=== PATIENT | female | born 1940 | race Caucasian/White ===

== ENCOUNTER 2016-12-08 12:54 | Day surgery (SDC) | payer MEDICARE ==
[~2016-12-08] VITALS: Ht 162.6 cm; Wt 74.4 kg
[2016-12-08] MEDS ORDERED: ALENDRONATE SOD35 MG PO (13:13)
[2016-12-08] MEDS ORDERED: CELEBREX200 MG PO (13:14)
[2016-12-08] MEDS ORDERED: ESTRACE1 MG PO (13:15)
[2016-12-08] MEDS ORDERED: FLUTICASONE PRO16 GM NAS (13:16)
[2016-12-08] MEDS ORDERED: FLUARIX QU60 MCG/0.3 IM (13:16)
[2016-12-08] MEDS ORDERED: LOVASTATIN40 MG PO (13:17)
[2016-12-08] MEDS ORDERED: LOVASTATIN20 MG PO (13:17)
[2016-12-08] MEDS ORDERED: MEDROXYPROGEST2.5 MG PO (13:17)
[2016-12-08] MEDS ORDERED: LEVOTHYROXINE112 MCG PO (13:17)
[2016-12-08] MEDS ORDERED: VESICARE5 MG PO (13:18)
[2016-12-08] MEDS ORDERED: NITROFURANTOIN100 MG (13:18)
--- NOTE | 2016-12-08 14:19 | NUR ---
12/08/16 1419 Micheal Foote PT SLEEPING AND PASSING LARGE AMOUNTS OF AIR FROM HER COLON.
--- NOTE | 2016-12-17 10:32 | OR ---
[facility] [address], [place] [address] Signed DATE OF SERVICE: 12/08/2016 PREOPERATIVE DIAGNOSIS: Episodic constipation. No prior history of complete colonoscopy. POSTOPERATIVE DIAGNOSES: Extensive diverticulosis. Polyps x3. PROCEDURE: Total colonoscopy to cecum with cold morcellation polypectomy x3. SURGEON: Meme Arellano MD. ANESTHESIA: Intravenous sedation. Fentanyl 150 mcg, Versed 4 mg. INDICATION: This 76-year-old white woman is a patient of Alexey DE LA FUENTE and was referred for colonoscopy. She has had occasional constipation, but no blood per rectum. Her sister was noted to have an arteriovenous malformation of the colon manifesting as GI bleeding. She has no family history of colon cancer. She does not think she has had colonoscopy in the past. She is admitted at this time to undergo colonoscopy understanding the risks of bleeding, infection, and perforation. FINDINGS: The prep was excellent. Complete colonoscopy was undertaken to the cecum. There were numerous diverticula of the sigmoid left and transverse colon as well as few in the right colon as well. There were 3 small polyps, all have been excised with cold morcellation technique. There were no ot her findings of concern. DESCRIPTION OF PROCEDURE: The patient was brought to the endoscopy suite and placed in lateral decubitus position, given intravenous sedation to the point of slurred speech and nystagmus. Digital rectal examination was normal. An O lympus video colonoscope was passed in the rectum and manipulated throughout the colon. Numerous diverticula were seen in the sigmoid and left colon. Scope was ultimately advanced to the splenic flexure area where a small sessile polyp was noted. This was excised with cold morcellation technique further with advancement of the scope allowed for intubation of the cecum. Ileocecal valve and appendiceal orifice were normal. There were fevers and diverticula in the right colon. The scope was withdrawn from that point and examination showed an area that was suggestive though not diagnostic Electronically Signed By: MEME ARELLANO MD 12/17/16 1032 PATIENT NAME: GAYLA JANE OPERATIVE REPORT DATE OF : 44 PHYSICIAN: MEME ARELLANO MD REPORT #: [id number] REPORT IS CONFIDENTIAL AND NOT TO BE RELEASED WITHOUT AUTHORIZATION [facility] [address], [place] [address] Signed of a polyp near the ileocecal valve. Narrow band imaging did not better characterize, it was biopsied. The scope was then withdrawn and examination throughout showed no sign of abnormality until the splenic flexure where the initial polypectomy site was. Further withdrawal of scope confirmed numerous diverticula of the left colon and sigmoid. Within the sigmoid was a small polyp and with narrow band imaging highly likely to be adenomatous polyps. This was excised fully with cold morcellation technique. Further withdrawal of scope showed no other abnormalities. Retroflexed view was normal. The scope was removed and the patient was taken to recovery room in good condition. CONCLUDING DIAGNOSES: Extensive diverticulosis. Polyps x2 or possibly 3. FOLLOW UP PLAN: We will check pathology reports. She should maintain a high-fiber diet and repeat colonoscopy in 5 years if clinically appropriate based on her medical condition at this time. She will return to the ongoing care of Samra Collier. MD LACEY Lee/Reymundol /[id number] cc: Samra Collier Electronically Signed By: MEME ARELLANO MD 12/17/16 1032 PATIENT NAME: GAYLA JANE ANN OPERATIVE REPORT DATE OF : 42 PHYSICIAN: MEME ARELLANO MD REPORT #: [id number] REPORT IS CONFIDENTIAL AND NOT TO BE RELEASED WITHOUT AUTHORIZATION
== END 2016-12-08 15:07 | disposition home or self-care (01) ==
LOC: OPS 12:54 → DS 14:00 → OPS 15:07
PROVIDERS: Surgery
PROC: 0DBN8ZX Excision of Sigmoid Colon, Via Natural or Artificial Opening Endoscopic, Diagnostic (ICD-10-PCS; 2016-12-08)
PROC: 0DBL8ZX Excision of Transverse Colon, Via Natural or Artificial Opening Endoscopic, Diagnostic (ICD-10-PCS; 2016-12-08)
PROC: 0DBH8ZX Excision of Cecum, Via Natural or Artificial Opening Endoscopic, Diagnostic (ICD-10-PCS; principal; 2016-12-08 10:00)
DX: D12.3 Benign neoplasm of transverse colon (principal); K57.30 Diverticulosis of large intestine without perforation or abscess without bleeding; E78.5 Hyperlipidemia, unspecified; I10 Essential (primary) hypertension; E03.9 Hypothyroidism, unspecified; Z87.891 Personal history of nicotine dependence; Z96.651 Presence of right artificial knee joint; Z90.89 Acquired absence of other organs; Z88.0 Allergy status to penicillin; Z88.2 Allergy status to sulfonamides; Z98.890 Other specified postprocedural states
CPT/HCPCS: 88305; 99152; 99153; J2250; J3010

== ENCOUNTER 2017-03-13 14:49 | Inpatient (IN) | payer MEDICARE ==
[~2017-03-13] VITALS: Ht 162.6 cm; Wt 68.0 kg
[~2017-03-13 14:49] MED LIST: ALENDRONATE SOD35 MG PO; CELEBREX200 MG PO; ESTRACE1 MG PO; FLUARIX QU60 MCG/0.3 IM; FLUTICASONE PRO16 GM NAS; LEVOTHYROXINE112 MCG PO; LOVASTATIN20 MG PO; LOVASTATIN40 MG PO; MEDROXYPROGEST2.5 MG PO; NITROFURANTOIN100 MG; VESICARE5 MG PO
[2017-03-14] MEDS ORDERED: ASPIR-LOW81 MG PO (13:52)
[2017-03-14] MEDS ORDERED: CALCIUM 600 MG1 EACH PO (13:53)
[2017-03-14] MEDS ORDERED: FISH OIL 1,0001 EACH PO (13:54)
[2017-03-14] MEDS ORDERED: OSTEO BI-FLEX1 EAC2 PO (13:54)
[2017-03-14] MEDS ORDERED: VITAMIN D31000 UNI1 PO (13:54)
--- NOTE | 2017-03-21 19:09 | NUR ---
PREADMIT PT CARE NOTE THIS IS A 76 YEAR OLD FEMALE THAT IS SCHEDULED FOR A RIGHT TOTAL KNEE REPLACEMENT ON 03/27/[address] ANGELES RANGEL. PT LIVES ALONE, HAS [address]. STATES SHE HAS A TUB/SHOWER COMBINATION WITH A HANDHELD SHOWERHEAD. IS GOING TO GET A FRONT WHEELED WALKER FROM [facility]. STAT SHE WOULD LIKE TO DO HER PT AT [facility] OP PT. AND HAD AN APPT THERE PREOPERATIVELY. PT STATES SHE HAS A SISTER FLYING IN BEFORE SURGER AND STAY FOR 5 WEEKS WITH THE PT. DENIES FURTHER QUESTIONS, OR CONCERNS WILL FOLLOW HER DURING HER STAY IN THE HOSPITAL.
--- NOTE | 2017-03-27 11:10 | NUR ---
PT DOING WELL. MOVING RIGHT FOOT. VSS. ATTEMPTED TITRATING O2 TO RA. PT SATS DROPPED TO 83%. 2L PUT BACK ON PT FOR NOW.
[2017-03-27] MEDS ORDERED: LEVOTHYROXINE125 MCG PO (11:41)
--- NOTE | 2017-03-27 14:16 | NUR ---
PATIENT DOING WELL. DOES NOT NEED ANYTHING AT THIS TIME.
--- NOTE | 2017-03-27 15:05 | NUR ---
refilled cryo cuff with ice. patient does not need anything else at this time.
--- NOTE | 2017-03-27 18:03 | NUR ---
2L 02 WHEN IN BED. DESATS WITH SLEEP. 2PA FWW. DIZZY AT TIMES. UNSTEADY. INCONTINENT-- ATTENDS IN PLACE. LUKE/JENIFER. [id number] @ 125. TORADOL SCHEDULED. OXYCODONE TO START AT 0800 TOMORROW. RIGHT KNEE DRESSING C/D/I.
--- NOTE | 2017-03-27 20:04 | NUR ---
PT APPEARS TO BE SLEEPING. RR WNL AND UNALBORED.
--- NOTE | 2017-03-27 20:20 | NUR ---
WOKE PT FOR VS, DENIES PAIN AT THIS TIME. IVF INFUSING CURRENLTY AT THIS TIME. CALL LIGHT WITH IN REACH.
--- NOTE | 2017-03-27 20:49 | NUR ---
PT UP TO BSC, 2 PERSON ASSIST. PT MOVES FAST, NEEDS CONSTANT AND FREQUENT DIRECTIONS. PT STOOD WITH FWW WELL, PIVOT TRANSFER TO BSC. INCONTINENT OF URINE. NEW ATTENDS IN PLACE. PT BACK TO BED. ALL DR RANGEL ORDERS IN PLACE. CALL LIGHT IN REACH.
--- NOTE | 2017-03-27 22:40 | NUR ---
PT LAYING IN BED. APPEARED ASLEEP WHEN ENTERING ROOM. STARTLED AWAKE WITH RN SAID HER NAME. PT ALERT AND ORIENTED X4. PLEASENT DEMEANOR. TEDS, SCD'S, HEEL PROTECTORS, CRYO CUFF ALL IN PLACE. PT REPORTS USING HER INCENTIVE SPIROMETER, "WHEN IM AWAKE." DRESSING IS CLEAN DRY AND INTACT, NO SHADOWING PRESENT. DENIES PAIN. DENIES PRURITIS, STATES "ITS GONE." PT REQUIRING 2L O2 VIA NC WHILE SLEEPING. PULSE OXIMETER IN PLACE. FRESH ICE WATER GIVEN. WARM BLANKET GIVEN. CALL LIGHT IN REACH. NO FURTHER NEEDS AT THIS TIME.
--- NOTE | 2017-03-27 23:47 | NUR ---
2 PERSON ASSISTED PATIENT TO BEDSIDE COMMODE WITH WALKER. RN PENG HAS TO GIVE DIRECTION DUE TO PATIENT MOVES FAST. PATIENT TOLERATES WELL. PATIENT IS BACK IN BED. SCDS, CRYO CUFF AND HEEL PROTECTOR ARE BACK ON. CRYO CUFF REFILLED. CALL LIGHT WITHIN REACH.
--- NOTE | 2017-03-27 23:50 | NUR ---
PT UP TO BSC. REQUIRES 2 PERSON ASSIST, WANTS TO MOVE FAST WITHOUT ALLOWING STAFF TO GET IN PLACE TO SAFELY ASSIST HER. CONSTANT AND FREQUENT REMINDERS NEEDED. PT TOLERATED TRANSFER WELL, CONTINUES TO DENY PAIN. DRESSING CDI, NO SHADOWING. PT BACK IN BED. ALL DR RANGEL ORDERS IN PLACE. NO FURTHER NEEDS AT THIS TIME. CALL LIGHT IN REACH.
--- NOTE | 2017-03-28 02:20 | NUR ---
PT UP TO BSC WITH FWW AND 2 PERSON ASSIST. APPEARS MORE STEADY ON FEET THAN EARLIER THIS SHIFT. PT CONTINUES TO DENY PAIN. BACK IN BED. ALL DR RANGEL ORDERS IN PLACE. FRESH ICE WATER GIVEN. CALL LIGHT IN REACH.
--- NOTE | 2017-03-28 02:47 | NUR ---
PT APPEARS TO BE SLEEPING. RR WNL AND UNLABORED. O2 SAT 97% ON 2L VIA NC. LIGHTS AND TV OFF IN ROOM.
--- NOTE | 2017-03-28 05:11 | NUR ---
PT APPEARS ASLEEP. LIGHTS AND TV OFF IN ROOM.
--- NOTE | 2017-03-28 05:16 | NUR ---
PT HAD UNEVENTFUL NIGHT. SLEPT MAJORITY OF SHIFT. CPAP IN PLACE. PT ALERT AND ORIENTED X4. PLEASENT AND COOPERATIVE. NO PAIN, NO NAUSEA OVERNIGHT. LABS WILL BE DRAWN THIS MORNING. DAILY WEIGHT. INDEPENDANT IN ROOM.
--- NOTE | 2017-03-28 05:28 | NUR ---
PT HAD UNEVENTFUL NIGHT. SLEPT MAJORITY OF SHIFT. ALERT AND ORIENTED X4, PLEASENT AND COOPERATIVE. USES CALL LIGHT APPROPRIATLY. DENIED PAIN, NAUSEA, AND PRURITIS ALL NIGHT. DRESSING IS CLEAN DRY AND INTACT, NO SHADOWING. TWO PERSON ASSIST WITH FWW, PT IS QUICK TO MOVE, NEEDS FREQUENT REMINDERS OF HOW TO TRANSFER SELF. TEDS, SCD'S, HEEL PROTECTORS, AND CRYO CUFF IN PLACE OVER NIGHT. PT REPORTS USING INCENTIVE SPIROMETER. VERY MOTIVATED.
--- NOTE | 2017-03-28 05:58 | NUR ---
pt up to bedside commode. steadier on feet than last night. 2 person assist with fww. pt tolerated well. back in bed. all dr madsen orders in place. filled ice in cryo cuff and gave fresh ice water. call light in reach.
--- NOTE | 2017-03-28 07:09 | NUR ---
PT COMPLAINED OF PRURITIS, STATES "IT STARTED AGAIN." GAVE BENEDRYL IV FOR ITCHING.
--- NOTE | 2017-03-28 07:45 | NUR ---
patient up to BSC 2 person assist. bed bath and oral care done. call button in reach. ordered patient breakfast. no other needs at this time.
--- NOTE | 2017-03-28 08:34 | OR ---
[facility] [address] [place], [place] [address] Signed DATE OF OPERATION: 03/27/2017 SURGEON: Quoc Urbano MD PREOPERATIVE DIAGNOSIS: Severe DJD, right knee. POSTOPERATIVE DIAGNOSIS: Severe DJD, right knee. PROCEDURE PERFORMED: Right total knee arthroplasty with computer navigation. ASSISTANTS: 1. Amber Schneider PA-C. 2. MADDIE Pretty. Amber was present and critical for positioning retraction, wound closure and dressing application. ANESTHESIA: Spinal with sedation. TOURNIQUET TIME: 59 minutes. IMPLANTS: [place] triathlon size 3, 11 mm insert and a 32 mm patella. BRIEF HISTORY: Thuy is a 76-year-old female with progressive worsening of osteoarthritis. She had undergone extensive nonoperative treatment without substantial relief. Risks, benefits, and alternatives were discussed at length and she wished to proceed. DESCRIPTION OF PROCEDURE: Once consent was obtained and medical clearance was obtained, she was taken to the operating room. After time-out to identify the correct site, correct patient, the patient was placed on the operating room table. All downside pressure points well-padded. The right leg was placed in well-padded proximal thigh tourniquet and the leg was prepped and draped in a standard sterile fashion. The leg was exsanguinated using Esmarch bandage and tourniquet inflated to 250 mmHg. A standard approach to curved Electronically Signed By: QUOC URBANO MD 03/28/17 0834 PATIENT NAME: THUY JANE OPERATIVE REPORT DATE OF : 42 PHYSICIAN: QUOC URBANO MD REPORT #: [id number] REPORT IS CONFIDENTIAL AND NOT TO BE RELEASED WITHOUT AUTHORIZATION [facility] [address], [place] [address] Signed incision anteriorly was taken through skin and subcutaneous tissue. Median parapatellar arthrotomy was performed. The infrapatellar fat pad was excised and the MCL was elevated, sleeve around the posteromedial corner. The knee was flexed and the osteophytes removed. The navigation guide was pinned to the distal femur and the femur was registered with the computer. The distal cutting guide was then pinned in neutral alignment and the distal femoral cut was made. The bone was excised. The distal end was then sized to a 3. A three AP cutting block was pinned in line with epicondylar axis. The anterior, posterior and chamfer cuts were made. Again any remaining osteophytes removed. The attention was then turned to the proximal tibia. Navigation guide was pinned over the proximal tibia and the tibia was registered with the computer. The cutting block was then pinned in position in a neutral alignment. The proximal tibial cut was then made with care taken to protect the MCL and patellar tendon. Bone was excised as were any meniscal remnants. Posterior osteophytes removed off the femur and posterior release performed. Flexion-extension gaps were sized, found to be symmetric at 11 mm. The trials were then positioned. Knee was taken through range of motion and found to be stable. The patella was cut, sized, and drilled for a 32 patella. The femoral drill holes were made on the femur. The trials were removed. The proximal tibia was finished using the keel punch. The bone surface was then pulse lavaged, packed with dry Ray-Zac. The cement was mixed and reached proper consistency, placed on all implants and all bone surfaces. Tibia was impacted in position first followed by the polyethylene and remaining cement was removed. The femur was impacted and again all excess cement was removed. The knee was extended and nicely loaded. The patella was clamped and any remaining cement was removed. The cement was allowed to harden once. It hardened sufficiently. The knee was flexed and the remaining cement was removed using osteotomes. The knee was pulse lavaged at intervals throughout the procedure. A total of 3 L antibiotic irrigation was used. Periarticular soft tissues were injected with 100 mL ropivacaine and Toradol mixture. The arthrotomy was then closed using #2 Stratafix, subcutaneous tissue with #1 Stratafix and the skin with rabia. Wound was dressed with a Mepilex Ag dressing, ABD, and Onesimo wrap. She was awakened and taken to the recovery room in satisfactory condition. All sponge, needle, and instrument counts were correct. Quoc Urbano MD Electronically Signed By: QUOC URBANO MD 03/28/17 0834 PATIENT NAME: THUY JANE OPERATIVE REPORT DATE OF : 42 PHYSICIAN: QUOC URBANO MD REPORT #: [id number] REPORT IS CONFIDENTIAL AND NOT TO BE RELEASED WITHOUT AUTHORIZATION [address] [address] Signed /MODL /[id number] Electronically Signed By: QUOC URBANO MD 03/28/17 0834 PATIENT NAME: THUY JANE ANN OPERATIVE REPORT DATE OF : 42 PHYSICIAN: QUOC URBANO MD REPORT #: [id number] REPORT IS CONFIDENTIAL AND NOT TO BE RELEASED WITHOUT AUTHORIZATION
--- NOTE | 2017-03-28 10:13 | NUR ---
PATIENT JUST FINISHED UP WITH PT. PATIENT SITTING UP IN CHAIR. CALL BUTTON IN REACH. NO OTHER NEEDS AT THIS TIME.
[2017-03-28] MEDS ORDERED: ACETAMINOPHEN325 M1 PO (11:15)
--- NOTE | 2017-03-28 12:36 | NUR ---
PATIENT TO BATHROOM WITH ONE PERSON ASSIST WITH FWW. PATIENT BACK TO CHAIR. ICE IN CRYO. FRESH ICE WATER. CALL BUTTON IN REACH. NO OTHER NEEDS AT THIS TIME.
--- NOTE | 2017-03-28 14:11 | NUR ---
PATIENT SITTING UP IN CHAIR. FAMILY JUST LEFT. PATIENT STATES SHES GOING TO TAKE A REST. RN IN ROOM.
--- NOTE | 2017-03-28 15:28 | NUR ---
PT REPORTS NO PAIN TODAY. ASKED QUESTIONS ABOUT NORMALCY OF LOW PAIN POST OP. ANSWERED QUESTIONS. DOING WELL WITH PHYSICAL THERAPY. SISTERS VISITING THROUGHOUT THE DAY. SITTING UP IN RECLINER. ROOM AIR. SATURATING WELL. DISCONTINUED CONTINUOUS PULSE OX.
--- NOTE | 2017-03-28 16:00 | NUR ---
PATIENT RESTING IN BED. FRESH ICEWATER GIVEN. WARM BLANKET. NO OTHER NEEDS AT THIS TIME. CALL BUTTON IN REACH.
--- NOTE | 2017-03-28 16:16 | NUR ---
PATIENT HAS HAD NO PAIN TODAY. COVERED WELL WITH SCHEDULED TORADOL AND OXYCODONE. WORKED WITH PHYSICAL THERAPY TWICE. 1PA WITH FWW. CECILIO HOSE IN PLACE. CRYOCUFF ON RIGHT KNEE. KYRA WRAP AND MEPILEX ON RIGHT KNEE C/D/I. SATURATING WELL ON ROOM AIR. MAY NEED O2 AT NIGHT FOR UNDIAGNOSED SLEEP APNEA. TOLERATING REGULAR DIET. PEDAL PULSES +2. POSSIBLY HOME TOMORROW. SISTERS PLAN TO STAY WITH HER POST OP AT HOME.
--- NOTE | 2017-03-28 16:20 | NUR ---
PT IN BED, UP TO BATHROOM WITH FWW WITH 1 PERSON ASSIST. PT DENIED PAIN. DRESSING TO RIGHT KNEE C/D/I, CMS TO BLE INTACT.
--- NOTE | 2017-03-28 17:01 | NUR ---
PATIENT RESTING IN BED WATCHING TV. FRESH ICE WATER. CALL BUTTON IN REACH. NO OTHER NEEDS AT THIS TIME.
--- NOTE | 2017-03-28 17:24 | NUR ---
PT IN BED, ASSISTED TO POSITION WITH HOB ELEVATED FOR DINNER. SISTERS AT BEDSIDE.
--- NOTE | 2017-03-28 17:59 | NUR ---
PT'S CRYO CUFF REFILLED WITH FRESH ICE AND WATER. PT VISITING WITH FRIEND AND HER SISTER. NO C/O PAIN. PT ATE 100% OF DINNER.
--- NOTE | 2017-03-28 19:05 | NUR ---
RECEIVED REPORT FROM RN. PATIENT DENIES NEEDS AT THIS TIME. DENIES PAIN. CALL LIGHT WITHIN REACH.
--- NOTE | 2017-03-28 20:28 | NUR ---
DUE TO LOSING IV ACCESS, DR. RANGEL WAS CONTACTED TO ASK FOR PO TORDOL. RECEIVED NEW ORDER FOR 10 MG TORDOL PO, Q6 HOURS.
--- NOTE | 2017-03-28 21:07 | NUR ---
NURSE NOTIFIED RE DOUGIEP.
--- NOTE | 2017-03-28 22:41 | NUR ---
PATIENT IS RESTING IN BED COMFORTABLY, BREATHING IS EVEN AND UNLABORED. FLACC SCORE OF 0. CALL LIGHT WITHIN REACH, ALL ORDERS IN PLACE.
--- NOTE | 2017-03-28 23:00 | NUR ---
PATIENT HELPED TO BATHROOM USING 1PA/FWW/NON-SLIP SOCKS. ONCE IN BED, PATIENT REPORTS 4/10 PAIN IN RIGHT KNEE. PRN NORCO GIVEN PER EMAR. DENIES OTHER NEEDS AT THIS TIME. CALL LIGHT WITHIN REACH, ALL ORDERS IN PLACE.
--- NOTE | 2017-03-29 01:11 | NUR ---
ASSISTED PATIENT TO USE THE COMMODE WITH WALKER. PATIENT IS BACK IN BED. CRYO, SCDS, HEEL PROTECTOR ARE BACK ON. CALL LIGHT IA WITHIN REACH.
--- NOTE | 2017-03-29 01:12 | NUR ---
PATIENT RESTING COMFORTABLY IN BED, BREATHING IS EVEN AND UNLABORED. O2 SATURATION WAS 84% ON RA, PUT PATIENT ON 1L 02 VIA NC, O2 SATURATION NOW 94%. WILL CONTINUE TO MONITOR O2 SATURATION AND O2 DEMAND WHILE PATIENT IS SLEEPING. FLACC SCORE OF 0, ALL ORDERS IN PLACE. CALL LIGHT WITHIN REACH.
--- NOTE | 2017-03-29 01:45 | NUR ---
PATIENT RESTING COMFORTABLY IN BED, BREATHING IS EVEN AND UNLABORED. O2 SATURATION IS 94% ON 1L O2 VIA NC. CALL LIGHT WITHIN REACH.
--- NOTE | 2017-03-29 03:07 | NUR ---
PATIENT TAKEN TO BATHROOM WITH 1PA/FWW/NON-SLIP SOCKS, WHICH SHE TOLERATED WELL. REPORTS 1/10 PAIN IN RIGHT KNEE, SCHEDULED PAIN MEDICATION GIVEN PER EMAR. DENIES OTHER NEEDS AT THIS TIME. ASSESSMENT DONE, CMS INTACT, DRESSING IS CDI. ALL ORDERS IN PLACE, CALL LIGHT WITHIN REACH. TEMPERATURE OF 100.[address] COE PER PROTOCOL. HE ORDERED A CHEST X-RAY AND UA FOR THE MORNING, WELL 500 MG TYELNOL PO Q4H PRN FOR FEVER.
--- NOTE | 2017-03-29 05:37 | NUR ---
PATIENT'S NIGHT WAS UNEVENTFUL. SHE HAS BEEN RESTING COMFORTABLY THROUGHOUT SHIFT. PAIN HAS BEEN WELL CONTROLLED WITH SCHEDULED PAIN MEDICATION AND X1 DOSE OF PRN NORCO. PATIENT HAD TEMPERATURE OF 100.6 EARLIER THIS SHIFT, DR. COE WAS MADE AWARE AND PATIENT WAS GIVEN TYLENOL. PATIENT'S TEMPERATURE IS NOW 98.8. ALL OTHER VITALS HAVE BEEN STABLE. DRESSING IS CDI, CMS INTACT. PATIENT IS TOLERATING AMBULATION WELL, WITH PAIN NEVER ABOVE A 4/10 PER THE PATIENT. SHE IS A 1PA/FWW AND IS SALINE LOCKED. NO ACUTE CHANGES FROM BEGINNING OF SHIFT ASSESSMENT.
--- NOTE | 2017-03-29 06:43 | NUR ---
PT SITTING IN CHAIR, ALERT AND ORIENTED. SHE WELCOMED ME IN, VERY PLEASANT CONVERSATION-SEEMED TO ENJOY SOME COMPANY. PT MENTIONED THAT SHE HAS NO PAIN YET, AND HAS HAD P.T. SHE SOON APOLOGIZED FOR ITCHING. SHE SAID SHE HAS HAD SOME BENEDRYL, BUT THE ITCHING HAS RETURNED. I SHARED THIS WITH HER RN. PT SAID HER SISTERS HAVE COME TO HELP HER FOR LONG SHE NEEDS THEM. PT REQUESTED PRAYER, SCRATACHING SEEMED TO BE MOSTLY LOCALIZED IN BOTH ARMS FROM FOREARM TO SHOULDERS. WILL FOLLOW NEEDED
--- NOTE | 2017-03-29 06:55 | NUR ---
PT COMPLAINED OF 5/10 PAIN IN RIGHT KNEE, GAVE NORCO 1 TAB PRN FOR PAIN.
--- NOTE | 2017-03-29 07:30 | NUR ---
BEDSIDE REPORT RECEIVED FROM ANIRUDH BAH. PT IS UP TO COMMNEERU, BASILIO CORTEZ IN ROOM ASSISTING PT. PT INVITED RNS IN TO ROOM. PT STATES PAIN IS 0/10 AT THIS TIME. PT STATES SOME PAIN, 5/10 WHEN AMBULATING. PLAN W PT TO GET UP TO CHAIR FOR MEALS. URINE CULTURE OBTAINED. WILL CONTINUE TO MONITOR.
--- NOTE | 2017-03-29 07:35 | NUR ---
Patient assisted up to the commode at this time and clean catch urine sample was obtained. Bedbath given and patient is now sitting up in the chair eating breakfast.
--- NOTE | 2017-03-29 09:20 | NUR ---
PT ASSESSMENT COMPLETE. PT ASSISTED BACK TO BED BY PT. PT HAS SCD'S ON, CRYO CUFF ON LEFT KNEE. PT STATES PAIN IS 1/10 AT THIS TIME. DRESSING CDI. PT ENCOURAGED TO USE IS, DEMONSTRATED USE X 5 WITH BEST EFFORT 1500 ML. PT RESTING IN BED, ORDERED PAIN MEDS GIVEN, PT TO RETURN IN 20 MINS TO WORK WITH PT. PT'S PULSES STRONG BILATERALLY UPPER AND LOWER EXTREMITIES, CAP REFIL <3 EXTREMITIES UPPER AND LOWER BILATERALLY. CALL LIGHT AND PERSONAL BELONGINGS IN REACH. PT REFUSES HEEL PROTECTORS AT THIS TIME WILL BE WORKING WITH PHYSICAL THERAPY.
--- NOTE | 2017-03-29 10:01 | NUR ---
PT in room with patient at this time.
--- NOTE | 2017-03-29 10:06 | NUR ---
Patient working with PT in room at this time. CRYO cuff refilled and pt was given fresh ice water. pt was offered her dentures and pt refused. No other requests at this time.
--- NOTE | 2017-03-29 11:09 | NUR ---
PT'S SISTERS IN ROOM VISITING. PT REPORTS PAIN IS 0/10 AT THIS TIME, DOES REPORT 5/10 PAIN WITH MOVEMENT, NO PAIN AT REST. PT HAS CRYO CUFF ON, SCDS ON, HEEL PROTECTORS ON. PT HAS NOT ORDERED LUNCH, GAVE PT MENU, ASSISTED TO ORDER LUNCH. PT HAS CALL LIGHT IN REACH. OFFERED PT'S FAMILY AND PT BEVERAGES, NO REQUESTS AT THIS TIME.
--- NOTE | 2017-03-29 11:35 | NUR ---
pts lunch tray picked up and pt is sitting up in chair. no other requests at this time.
--- NOTE | 2017-03-29 12:19 | NUR ---
PT LYING IN BED, STATES PAIN IS 8/10 WITH MOVEMENT, 1/10 PAIN WHILE LYING IN BED ADMINISTERED 1 NORCO TABLET PO FOR PAIN. PT'S SISTERS IN ROOM. PT DENIES NAUSEA, ATE 100% OF LUNCH. GAVE PT ANOTHER BLANKET. PT HAS NO ADDITIONAL REQUESTS AT THIS TIME. CALL LIGHT IN REACH.
--- NOTE | 2017-03-29 14:43 | NUR ---
PT ASSESSMENT COMPLETE. PT RIGHT LEG CDI, CRY CUFF ON LEG. CSM INTACT BILATERALLY UPPER AND LOWER EXTREMITIES. NO EDEMA NOTED. PT HAS SCDS, HEEL PROTECTORS ON, CECILIO HOSE IN PLACE BILATERALLY. PT REPORTS PAIN IS 1/10 WHILE RESTING. ASSISTED PT TO RESTROOM FOR VOID W FWW AND SBA. PT BACK TO BED, CALL LIGHT IN REACH.
--- NOTE | 2017-03-29 16:40 | NUR ---
IN PT'S ROOM TO ASSESS PT PAIN, PT SLEEPING AT THIS TIME. CALL LIGHT IS IN REACH. WILL CONTINUE TO MONITOR.
--- NOTE | 2017-03-29 17:40 | NUR ---
PATIENT UP TO BATHROOM ONE PERSON ASSIST WITH WALKER. PATIENT BACK TO BED SITTING STRAIGHT UP FOR DINNER. FRESH ICE WATER GIVEN. ICE IN CRYO. CALL BUTTON IN REACH NO OTHER NEEDS AT THIS TIME.
--- NOTE | 2017-03-29 18:13 | NUR ---
PT WORKED WITH PHYSICAL THERAPY X 2 THIS SHIFT. PT COMPLAINS OF PAIN IN RIGHT KNEE WITH AMBULATION HIGH 8/10. PRN NORCO GIVEN X 2 ALONG W SCHEDULED OXYCODONE AND TORADOL THROUGHOUT SHIFT. PT HAS DENIED NAUSEA THIS AFTERNOON. PT HAS BEEN AFEBRILE, CONTINUES TO USE IS WHEN PROMPTED. PT AMBULATES WITH FWW AND SBA WITH DRIBBLING, INCONTINENCE IN DEPENDS WITH EFFORTS TO AMBULATE TO COMMODE THROUGHOUT SHIFT. PT HAD BM THIS MORNING. PT'S RIGHT LEG HAS BEEN CDI WITH CRYO CUFF, HEEL PROTECTORS, CECILIO HOSE, AND SCD'S IN PLACE WHILE PT HAS BEEN IN BED.
--- NOTE | 2017-03-29 19:20 | NUR ---
received report from rn. patient is resting comfortably in bed, breathing is even and unlabored. reports 2/10 pain in right knee. denies needs at this time. all orders in place. call light within reach.
--- NOTE | 2017-03-29 20:08 | NUR ---
PATIENT UP TO BATHROOM WITH 1PA/FWW/NON-SLIP SOCKS. TOLERATING AMBULATION WELL, WITH MILD INCREASE IN PAIN. PATIENT NOW RESTING COMFORTABLY IN BED, BREATHING IS EVEN AND UNLABORED. REPORTS 1/10 PAIN AT REST. SCHEDULED PAIN MEDICATION GIVEN. NO OTHER NEEDS AT THIS TIME. ASSESSMENT DONE, ALL ORDERS IN PLACE, CALL LIGHT WITHIN REACH.
--- NOTE | 2017-03-29 20:29 | NUR ---
PATIENT IN BED, NURSE TOOK HER TO THE RESTROOM AND GOT HER READY FOR BED. ICE WATER REFILLED. WHITEBOARD UPDATED, ROOM TIDIED. PATIENT DOES NOT NEED ANYTHING ELSE AT THIS TIME.
--- NOTE | 2017-03-29 21:15 | NUR ---
PT UP TO BS, FOLLOWS DIRECTION AND TRANSFERS SELF WELL WITH FWW. PT CHEEKS ARE RED, AND SHE COMPLAINED OF CHILLS, TEMP 100.1. PT ALSO COMPLAINS OF PAIN WHEN "MOVING MY LEG," "6 OR A 7", "ITS 0 THOUGH WHEN IM JUST LAYING HERE." PT BACK IN BED. ALL DR RANGEL ORDERS IN PLACE. ORGANIZED BEDSIDE TABLE. GAVE TYLENOL FOR ELEVATED TEMP AND PAIN. PT HAS NO FURTHER NEEDS. CALL LIGHT IN REACH. ENCOURAGED USE OF INCENTIVE SPIROMETER. GAVE FRESH ICE WATER.
--- NOTE | 2017-03-29 23:12 | NUR ---
PATIENT RESTING COMFORTABLY IN BED, BREATHING IS EVEN AND UNLABORED. FLACC SCORE OF 0. ALL ORDERS IN PLACE, CALL LIGHT WITHIN REACH.
--- NOTE | 2017-03-29 23:12 | NUR ---
PATIENT HAS TEMPERATURE OF 99.6. DUE TO NORCO ADMINISTRATION, NO TYLENOL GIVEN DUE TO TYLENOL IN NORCO. REMOVED EXTRA BLANKETS AND TURNED DOWN TEMPERATURE IN ROOM. WILL CONTINUE TO MONITOR TEMPERATURE.
--- NOTE | 2017-03-29 23:48 | NUR ---
PATIENT ASSISTED TO BATHROOM WITH 1PA/FWW/NON-SLIP SOCKS. REPORTS PAIN OF 6/10 IN RIGHT KNEE DURING AMBULATION. PRN NORCO GIVEN PER EMAR. PATIENT NOW RESTING COMFORTABLY IN BED, BREATHING IS EVEN AND UNLABORED. ALL ORDERS IN PLACE, CALL LIGHT WITHIN REACH.
--- NOTE | 2017-03-30 00:18 | NUR ---
PATIENT IN BED. DOES NOT NEED ANYTHING AT THIS TIME.
--- NOTE | 2017-03-30 02:10 | NUR ---
PATIENT ASLEEP. NO CHANGES. DOES NOT NEED ANYTHING CURRENTLY.
--- NOTE | 2017-03-30 02:30 | NUR ---
PT UP TO BSC. RATES PAIN AT "1." STATES "I THINK ITS BETTER THAN YESTERDAY," REGARDING PAIN. SCHEDULED PAIN MEDICATION GIVEN. TEMP 98.8. NO FURTHER NEEDS. CALL LIGHT IN REACH.
--- NOTE | 2017-03-30 04:15 | NUR ---
PATIENT TAKEN TO BATHROOM USING 1PA/FWW/NON-SLIP SOCKS. PATIENT IS TOLERATING AMBULATION, BUT REPORTS 6/10 PAIN IN RIGHT KNEE WHEN AMBULATING. PRN NORCO GIVEN PER EMAR. PATIENT DENIES FURTHER NEEDS AT THIS TIME. CRYO CUFF RE-FILLED, ALL ORDERS IN PLACE. CALL LIGHT WITHIN REACH.
--- NOTE | 2017-03-30 04:26 | NUR ---
PATIENT DOING WELL. DOES NOT NEED ANYTHING AT THIS TIME.
--- NOTE | 2017-03-30 04:34 | NUR ---
PATIENT'S NIGHT WAS UNEVENTFUL. SHE HAS BEEN RESTING COMFORTABLY IN BED THROUGHOUT SHIFT. PAIN HAS BEEN WELL CONTROLLED WITH SCHEDULED AND PRN PAIN MEDICATION. PATIENT HAD A TEMPERATURE OF 100.1 WHICH HAS BEEN REDUCED TO 98.8 AFTER TYLENOL ADMINISTRATION. DRESSING REMAINS CDI, CMS INTACT. SHE IS A SBA/FWW, NO IV ACCESS. NO ACUTE CHANGES FROM BEGINNING OF SHIFT ASSESSMENT.
--- NOTE | 2017-03-30 05:48 | NUR ---
PATIENT IS RESTING COMFORTABLY IN BED, BREATHING IS EVEN AND UNLABORED, FLACC OF 0. ALL ORDERS IN PLACE, CALL LIGHT WITHIN REACH.
--- NOTE | 2017-03-30 06:43 | NUR ---
PT UP TO BSC AND THEN TO CHAIR. PT RATES PAIN AT 5/10 WHEN UP AND "MOVING AROUND." GAVE 1 TAB NORCO FOR PAIN. TEMP 99.6. PT UP IN CHIAR. CRYO CUFF IN PLACE. GAVE FRESH ICE WATER. PT USING INCENTIVE SPIROMETER. ORDERED BREAKFAST FOR PT. PT HAS NO FURTHER NEEDS. CALL LIGHT IN REACH.
--- NOTE | 2017-03-30 07:00 | NUR ---
BEDSIDE REPORT RECEIVED FROM ANIRUDH BAH. PT SITTING UP IN CHAIR. CRYO CUFF ON RIGHT LEG. LEGS ELEVATED. PT HAS ORDERED BREAKFAST, PT REFUSES DENTURES THIS MORNING. PT HAS NO ADDITIONAL REQUESTS, CALL LIGHT IN REACH.
--- NOTE | 2017-03-30 07:31 | NUR ---
DR. RANGEL IN PT ROOM. PLAN TO DISCHARGE PT TO HOME.
[2017-03-30] MEDS ORDERED: OXYCODONE HCL5 MG PO (07:34)
[2017-03-30] MEDS ORDERED: HYDROCODON-ACE1 EA11 PO (07:34)
[2017-03-30] MEDS ORDERED: XARELTO10 MG PO (07:34)
[2017-03-30] MEDS ORDERED: MIRALAX17 GM PO (07:35)
--- NOTE | 2017-03-30 08:17 | NUR ---
PT ASSESSMENT COMPLETE. PT SITTING UP IN CHAIR. ALERT AND ORIENTED X 3. PTS LUNGS CLEAR. SURGICAL SITE OPEN TO AIR. CLEAN DRY INTACT, NO REDNESS NOTED, MICKI AND INCISION INTACT. CRYO CUFF IS ON RIGHT KNEE. PT STATES SHE IS IN NO PAIN AT REST, RATES PAIN AT 3-5 WITH AMBULATION. ADMINISTERED SCHEDULED PAIN MEDICATIONS. PT HAS LEGS ELEVATED, CECILIO HOSE ON. CALL LIGHT IS IN REACH. PT BROUGHT ENSURE DRINK, WATER BY BASILIO BENITO.
--- NOTE | 2017-03-30 09:30 | NUR ---
SPOKE WITH PATIENT. SHE IS "READY TO GO HOME". PATIENT STILL PLANNING ON OUTPATIENT THERAPY AT [facility] OUTPATIENT [facility]. PATIENT HAS OWN WALKER IN ROOM., HAS RIDE HOME WITH SISTER.
--- NOTE | 2017-03-30 10:08 | NUR ---
PHARMACIST ASHLEE PHONED, UPDATED THAT SISTERS IN ROOM, READY FOR DISCHARGE INSTRUCTION. PT STATES PAIN IS 0/10 AT THIS TIME, 3/10 WITH MOVEMENT, WILL CONTINUE TO MONITOR. PLAN TO ADMINISTER PRN NORCO AVAILABLE PRIOR TO DISCHARGE. CALL LIGHT IN REACH.
--- NOTE | 2017-03-30 10:20 | NUR ---
PT DOING WELL
--- NOTE | 2017-03-30 10:24 | NUR ---
DISCHARGE INSTRUCTIONS PROVIDED TO PT AND PT'S SISTERS. QUESTIONS ANSWERED. MEPILEX AND OPSITE APPLIED TO RIGHT LEG. INCISION AND MICKI INTACT, NO REDNESS NOTED, SITE IS DRY. CRYO CUFF ON RIGHT LEG. PT STATES PAIN IS 1/10 AT THIS TIME, 3/10 W MOVEMENT. PRESCRIPTION GIVEN TO SISTERS. ENCOURAGED USE OF IS, CRYO CUFF AT HOME. PHARMACIST ASHLEE NOW IN ROOM PROVIDING DISCHARGE INSTRUCTIONS, EDUCATION.
--- NOTE | 2017-03-30 10:55 | NUR ---
PT OFF FLOOR DISCHARGE VIA WHEELCHAIR WITH BASILIO BENITO, HOME WITH SISTERS.
--- NOTE | 2017-03-30 17:30 | NUR ---
FAXED OUTPATIENT ORDER AND CLINICALS TO [facility]. FAX CONFIRMATION RECEIVED.
--- NOTE | 2017-03-31 07:30 | DS ---
[facility] [address], [place] [address] Signed ADMISSION DATE: 03/27/2017 DISCHARGE DATE: 03/30/2017 ADMISSION DIAGNOSIS: Degenerative joint disease, right knee. DISCHARGE DIAGNOSIS: Degenerative joint disease, right knee. PROCEDURE PERFORMED: Right total knee arthroplasty. BRIEF HISTORY: Thuy is a 76-year-old female with progressive worsening of her osteoarthritis. We treated for many years nonoperatively, however, this failed to control her pain. Risks, benefits, and alternatives were discussed with her of operative intervention, she elected to proceed. HOSPITAL COURSE: Once the consent was obtained, she was taken to the operating room. After adequate anesthesia, she was placed on operating table, underwent the above-named procedure. She tolerated this well, was taken to the recovery room, subsequently orthopedic floor. She was placed on pain medication of oxycodone 5 q.6 and Mohall 7.5 q.4 which managed her pain well. She was kept on DVT prophylaxis of SCDs, TEDs and Xarelto 10 mg daily. She did well with physical therapy and was able to ambulate up and down the hallway and up and down the stairs with good safety profile throughout her hospitalization. She did have a low-grade temperature, although did not reach the fever and her chest x-ray and urine were clear. Her white count was coming down at the end of her hospitalization and this was felt to be secondary to margination. She will be discharged home with the above medications and outpatient physical therapy. She will follow up with me in 10-14 days or sooner should she have problems. Quoc Urbano MD BA/THOMASL /[id number] Electronically Signed By: QUOC URBANO MD 03/31/17 0730 PATIENT NAME: THUY JANE DISCHARGE SUMMARY DATE OF : 44 PHYSICIAN: QUOC URBANO MD REPORT #: [id number] REPORT IS CONFIDENTIAL AND NOT TO BE RELEASED WITHOUT AUTHORIZATION [address] [place] [address] Signed Electronically Signed By: QUOC URBANO MD 03/31/17729 PATIENT NAME: THUY JANE ANN DISCHARGE SUMMARY DATE OF : 44 PHYSICIAN: QUOC URBANO MD REPORT #: [id number] REPORT IS CONFIDENTIAL AND NOT TO BE RELEASED WITHOUT AUTHORIZATION
== END 2017-03-30 10:55 | disposition home or self-care (01) | DRG 470 ==
LOC: DSVR 03-27 05:30 → MS 03-27 06:45
PROVIDERS: ADMIT Specialist
PROC: 0SRC0J9 Replacement of Right Knee Joint with Synthetic Substitute, Cemented, Open Approach (ICD-10-PCS; principal; 2017-03-27 06:45)
DX: M17.11 Unilateral primary osteoarthritis, right knee (principal); E78.5 Hyperlipidemia, unspecified; E03.9 Hypothyroidism, unspecified; M81.0 Age-related osteoporosis without current pathological fracture; G47.33 Obstructive sleep apnea (adult) (pediatric); E55.9 Vitamin D deficiency, unspecified
CPT/HCPCS: 01402; 36415; 64447; 71010; 76942; 80048; 81001; 85025; 97110; 97116; 97161; 97530; C1713; C1776; J0690; J0735; J1100; J1200; J1885; J2250; J2274; J2300; J2405; J2704; J3010; J7120

== ENCOUNTER 2023-09-14 22:04 | Emergency (ER) | payer MEDICARE ==
[~2023-09-14] VITALS: Ht 162.6 cm; Wt 72.0 kg
[~2023-09-14 22:04] MED LIST changes: +ACETAMINOPHEN325 M1 PO; +ASPIR-LOW81 MG PO; +CALCIUM 600 MG1 EACH PO; +DESMOPRESSIN ACE5 ML NAS; +FISH OIL 1,0001 EACH PO; +GABAPENTIN100 MG PO; +HYDROCODON-ACE1 EA11 PO; +HYDROMORPHONE HC2 MG PO; +LEVOTHYROXINE125 MCG PO; +MIRALAX17 GM PO; +OSTEO BI-FLEX1 EAC2 PO; +OXYCODONE HCL5 MG PO; +SENNA LAX8.6 MG PO; +VITAMIN D31000 UNI1 PO; +XARELTO10 MG PO
[2023-09-14] MEDS ORDERED: HYDROCODON-ACE1 EA10 PO (23:37)
[2023-09-14] MEDS ORDERED: diazePAM 10 MG/2 ML SYR IV ONE (23:45)
[2023-09-14] MEDS ORDERED: diazePAM 2 MG TAB PO ONE (23:45)
[2023-09-14] MEDS ORDERED: HYDROCODONE BIT/ACETAMINOPHEN 5/325 MG 1 TAB HOME.PACK PO ONE (23:45)
[2023-09-15 01:50] VITALS: BP 149/86
== END 2023-09-15 01:50 | disposition home or self-care (01) ==
LOC: ED 22:04
DX: S83.92XA Sprain of unspecified site of left knee, initial encounter (principal); M25.462 Effusion, left knee; Z96.652 Presence of left artificial knee joint; E78.00 Pure hypercholesterolemia, unspecified; Z87.891 Personal history of nicotine dependence; Z88.6 Allergy status to analgesic agent; Z88.0 Allergy status to penicillin; Z88.2 Allergy status to sulfonamides; Z79.899 Other long term (current) drug therapy; Z79.82 Long term (current) use of aspirin; Z79.890 Hormone replacement therapy; X58.XXXA Exposure to other specified factors, initial encounter
CPT/HCPCS: 73560; 99283-25; A9270

== ENCOUNTER 2023-09-18 19:40 | Inpatient (IN) | payer MEDICARE ==
[~2023-09-18] VITALS: Ht 162.6 cm; Wt 66.7 kg
[~2023-09-18 19:40] MED LIST changes: +HYDROCODON-ACE1 EA10 PO
--- OUTSIDE RECORDS SUMMARY | 2023-09-18 19:42 | XMS ---
PreManage Notification: GAYLA JANE Security Director Of Cardiology Service Line Events No recent Security Events currently on file CRITERIA MET - [facility] - [facility] - 2 Visits in 30 Days CARE PROVIDERS There are no care providers on record at this time. [facility] has no Care Guidelines for this patient. Jadiel VISIT COUNT (12 MO.) [facility] TOTAL 2 NOTE: Visits indicate total known visits. ED/C VISIT TRACKING (12 MO.) [facility]23 [facility] COMPLAINT: - LEG PAIN 09/14/2023 22:[address] [facility] TYPE: Emergency COMPLAINT: - LT LEG PAIN DIAGNOSES: - Allergy status to analgesic agent - Allergy status to penicillin - Allergy status to sulfonamides - Effusion, left knee - Exposure to other specified factors, initial encounter - Hormone replacement therapy - tank terminal gauger (current) use of aspirin - Other tank terminal gauger (current) drug therapy - Pain in left knee - Personal history of nicotine dependence - Presence of left artificial knee joint - Pure hypercholesterolemia, unspecified - Sprain of unspecified site of left knee, initial encounter INPATIENT VISIT TRACKING (12 MO.) No inpatient visits to display in this time frame [id number]
[2023-09-18] MEDS ORDERED: SODIUM CHLORIDE 0.9% 500 ML IV PRN (20:00)
[2023-09-18 20:34] LABS: INR 0.94 (0.80-1.30); PROTIME 12.2 Sec (11.2-14.2)
[2023-09-18 20:41] LABS: ALBUMIN 2.9 g/dL (3.4-5.0); ALBUMIN/GLOBULIN RATIO 0.81 (1.1-2.4); ANION GAP 12.2 (7-21); BILIRUBIN, TOTAL 0.6 ng/dL (0.2-1.0); BUN/CREATININE RATIO 18.69 (6.0-28.6); CALCIUM 8.4 mg/dL (8.5-10.1); CREATININE, SERUM 1.07 mg/dL (0.55-1.02); POTASSIUM 4.2 mmol/L (3.5-5.1); PROTEIN, TOTAL 6.5 g/dL (6.4-8.2)
[2023-09-18 20:45] LABS: LACTIC ACID, BLOOD 1.2 mmol/L (0.4-2.0)
[2023-09-18 20:53] LABS: INFLUENZA B NAA NEGATIVE (NEGATIVE); RESPIRATORY SYNCYTIAL VIR NAA NEGATIVE (NEGATIVE)
[2023-09-18 20:57] LABS: BASOPHILS 0.5 % (0-2); EOSINOPHILS 2.8 % (0-6); HEMATOCRIT 43.7 % (35.0-50.0); HEMOGLOBIN 14.6 g/dL (12.0-18.0); LYMPHOCYTES 15.9 % (24-44); MCH 31.1 (27-36); MCHC 33.4 g/dl (30-36); MCV 93.1 fl (81-99); MONOCYTES 9.3 % (0-12); NEUTROPHILS 71.5 % (39-80); PLATELET COUNT 194 K/uL (140-440); RBC 4.69 M/ul (4.3-5.7); RDW 14.8 (10.5-15.0)
[2023-09-18 21:39] LABS: BILIRUBIN, URINE POSITIVE (negative); BLOOD/HGB, URINE LARGE (Negative); KETONE, URINE TRACE (Negative); LEUK ESTERASE, URINE LARGE (negative); NITRITE, URINE NEGATIVE (negative)
[2023-09-18 21:48] LABS: EPITHELIAL CELLS, URINE SQUAMOUS 3+ /lpf (0-1+); RED BLOOD CELLS, URINE >50 /hpf (0-5)
[2023-09-18 21:49] LABS: BACTERIA, URINE 3+ /hpf (negative); CASTS, URINE NONE SEEN \\lpf; CRYSTALS, URINE NONE SEEN (0-1+); REFLEX CULTURE, URINE No (No)
[2023-09-18] MEDS ORDERED: CEFTRIAXONE/SODIUM CHLORIDE 2 GM/100 ML PIGGYBACK IV ONE (22:30)
[2023-09-19] VITALS (9 sets, daily range): BP systolic 121–1463; BP diastolic 58–71
[2023-09-19] MEDS ORDERED: MORPHINE SULFATE 4 MG/ML VIAL IV PRN (00:45)
[2023-09-19] MEDS ORDERED: ondansetron HCL 4 MG/2 ML VIAL IV PRN (00:45)
[2023-09-19] MEDS ORDERED: ACETAMINOPHEN 325 MG TAB PO PRN ×2 (00:45→18:30)
[2023-09-19] MEDS ORDERED: SODIUM CHLORIDE 0.9% 1,000 ML IV SCH (00:45)
--- NOTE | 2023-09-19 02:16 | NUR ---
PT TO FLOOR VIA STRETCHER WITH ED RN. PT ALERT AND ORIENTED. 3PA TO TRANSFER FROM STRETCHER TO BED. BEDSIDE REPORT RECEIVED. PT ALERT AND ORIENTED. INCONTINENT OF LARGE AMOUNT OF URINE. EUNICE CARE DONE. CLEAN PUREWICK AND BRIEF IN PLACE. PT ABLE TO ASSIST WITH CARES. APPREHENSIVE FOR FEAR OF LLE PAIN. SECOND SKIN CHECK WITH ED RN COMPLETE. EUNICE AREA/BUTTOCKS RED AND BLANCHABLE. NO OPEN AREAS NOTED. VS OBTAINED. ADMISSION ASSESSMENT COMPLETE. IVF INFUSING PER EMAR. PT REPORTS HIP PAIN FROM "LAYING IN BED" 06/24. PRN FOR PAIN ADMIN PER EMAR. PT ORIENTED TO ROOM AND NURSE CALL LIGHT. SISTER AT BEDSIDE. PT/FAMILY DENY QUESTIONS OR CONCERNS. CALL LIGHT IN REACH. BED ALARM FOR SAFETY.
--- NOTE | 2023-09-19 04:03 | NUR ---
PT RESTING IN BED WITH EYES CLOSED. RESPIRATIONS EVEN. CALL LIGHT IN REACH. BED ALARM FOR SAFETY.
--- NOTE | 2023-09-19 05:47 | NUR ---
PT AWAKE IN BED. VS AND I&O OBTAINED. PT INCONTINENT OF LARGE AMOUNT BLOOD TINGED URINE. EUNICE CARE DONE. NEW BRIEF AND PUREWICK IN PLACE. PT ABLE TO ASSIST WITH CARES. OXYGEN TITRATED OFF AT THIS TIME. SpO2 REMAINS MID 90'S ON RA. ASSESSMENT COMPLETE. NO FURTHER NEEDS.
--- NOTE | 2023-09-19 06:33 | NUR ---
PT DOZING ON AND OFF. SpO2 LOW 87% ON RA. 1L/NC PLACED.
--- NOTE | 2023-09-19 07:00 | NUR ---
Pt report received from ANIRUDH Avitia. Pt is laying supine in bed, awake, oriented, requests warm blanket. Pt's breathing is regular, even, and non-labored. Call light in reach. Pt denies further needs at this time.
[2023-09-19] MEDS ORDERED: GABAPENTIN400 MG PO (07:58)
[2023-09-19] MEDS ORDERED: LEVOTHYROXINE112 MCG PO (08:01)
[2023-09-19] MEDS ORDERED: CEFTRIAXONE/SODIUM CHLORIDE 1 GM/100 ML PIGGYBACK IV SCH ×2 (09:00→09:24)
[2023-09-19] MEDS ORDERED: 8 HOUR PAIN RE650 MG PO (09:03)
[2023-09-19] MEDS ORDERED: CELECOXIB200 MG PO (09:07)
--- NOTE | 2023-09-19 09:09 | NUR ---
MED REC COMPLETE
[2023-09-19] MEDS ORDERED: GABAPENTIN 400 MG CAP PO SCH (09:52)
[2023-09-19] MEDS ORDERED: LEVOTHYROXINE SODIUM 112 MCG TAB PO SCH (09:53)
--- NOTE | 2023-09-19 09:54 | NUR ---
PATIENT IN BED WATCHING TV AT THIS TIME. VITALS DONE BY CONFIGURATION MANAGEMENT ADVISOR. I&O'S CHARTED. CALL LIGHT IN REACH. NO FURTHER NEEDS AT THIS TIME.
--- NOTE | 2023-09-19 10:52 | NUR ---
UR NOTE INPATIENT ORDER 09/19/23 0845 EXPECTED LOS >2 MIDNIGHTS PRIMARY INSURANCE: C MEDICARE HMO NO SECONDARY
--- NOTE | 2023-09-19 11:05 | NUR ---
VISITED DURING SPIRITUAL CARE ROUNDS. LISTENED EMPATHETICALLY PT TALKED OF RECENT HEALTH AND MOBILITY CHALLENGES; PROVIDED SUPPORTIVE PRESENCE, HOSPITALITY AND PRAYER. PT EXPRESSED GRATITUDE.
--- NOTE | 2023-09-19 11:05 | NUR ---
IN TO ROOM TO VISIT WITH PATIENT. PATIENT STATES THAT PRIOR TO 09/14/23 SHE WAS DOING WELL AND LIVING INDEPENDENTLY AT HOME. PATIENT STATES WHILE AT HER BIRTHDAY GATHERING SHE FELL BACKWARDS OFF A STOOL. SHE STATES SHE HEARD A LOAD POP FROM HER KNEE AND HAS NOT BEEN ABLE TO AMBULATE SINCE. PATIENT HAS BEEN STAYING WITH HER SISTER BRIAN AND BROTHER IN [place] SHE IS NOT ABLE TO GET IN AND OUT OF HER HOME. PATIENT LIVES IN A 1 STORY HOME WITH 6 STEPS LEADING IN. SHE HAS WALKED WITH A CANE SINCE HER LAST KNEE REPLACEMENT IN 07/2022. SHE DOES NOT WEAR CHRONIC OXYGEN. PATIENT HAD BEEN ABLE TO DRIVE, SHOP AND GO TO HER APPOINMENTS INDEPENDENTLY.HER SISTER LAURENT IS HER POA AND LIVES IN [facility]. PATIENT IS MOST CONCERNED ABOUT HER DOG AND CATS AT HOME. PATIENT SISTER BRIAN AND THE PATIENT NEIGHBORS ARE ASSISTING WITH THEIR CARE AT THIS TIME. WHEN DISCUSSING POSSIBLE NEED FOR PLACEMENT FOLLOWING HER STAY THE PATIENT STATES "WE'LL HAVE TO SEE WHAT THE PLAN IS AND HOW THINGS GO FIRST." PATIENT IS RECEPTIVE TO SNF PLACEMENT IF NEEDED. SHE STATES HER SISTERS WERE ABLE TO STAY WITH HER FOR EXTENDED AMOUNTS OF TIME AFTER HER KNEE REPLACEMENT AND THAT COULD POSSIBLY BE AN OPTION AGAIN. PATIENT DECLINES FINANCIAL NEEDS AT THIS TIME. ALL DEMOGRAPHICS REVIEW. WILL CONTINUE TO CHECK IN WITH PATIENT DURING HER VISIT FOR ONGOING DISCHARGE DISPOSITION.
[2023-09-19] MEDS ORDERED: PHARMACY RENAL DOSE ADJUSTMENT 1 DOSE MISC PO SCH (12:00)
--- NOTE | 2023-09-19 12:10 | NUR ---
In with pt for hourly rounding and med administration (late). Pt reports pain 6 out of 10 in bilateral lower extremities after her ultrasound. 650mg tylenol administered per emar. Pt lunch tray at bedside, however, pt states she doesn't have an appetite and if she does eat anything "it'll just come back up", but states that she is not nauseated. Offered to cut up her food for her but she declined. Water refreshed, warm blanket provided. Discussed moving herself around in bed to avoid pressure ulcers. Pt states she is able to lift and adjust her hips as needed, but when asked if she would get up to the chair, with help, to allow us to place a waffle mattress on the bed, she refused, stating, "no one is getting me up anywhere. I hurt all over". Call light in reach, lunch tray in reach in the event she wants to try to eat. Pt verbalized understanding of the importance of moving herself in bed often. Side rails up x4.
--- NOTE | 2023-09-19 14:00 | EKG ---
[facility] [address] [facility] [place] [address] Signed Normal sinus rhythm Low voltage QRS Nonspecific T wave abnormality Abnormal ECG When compared with ECG of 20-JUN-2022 14:24, Nonspecific T wave abnormality now evident in Inferior leads T wave inversion now evident in Anterior leads Confirmed by Jose Carlos Cornell MD ([id number]) on 09/19/2023 2:00:36 PM Electronically Signed By: JOSE CARLOS CORNELL 09/19/23 1400 PATIENT NAME: GAYLA JANE ANN Electrocardiogram DATE OF : 44 PHYSICIAN: JOSE CARLOS CORNELL REPORT #: [id number] REPORT IS CONFIDENTIAL AND NOT TO BE RELEASED WITHOUT AUTHORIZATION
--- NOTE | 2023-09-19 14:10 | NUR ---
PATIENT IN BED RESTING WITH EYES CLOSED. SLUDGE CONTROL ATTENDANT IN TO DO VITALS. I&O'S CHARTED BY THIS APPLICATIONS SUPPORT SPECIALIST. CALL LIGHT IN REACH. NO FURTHER NEEDS AT THIS TIME.
--- NOTE | 2023-09-19 18:31 | NUR ---
VERBAL ORDER OBTAINED FROM DR. GAMBLE FOR PO TYLENOL 650MG Q6P PAIN AND LR 100ML/HR CONTINUOUS.
--- NOTE | 2023-09-19 18:40 | NUR ---
In with pt for cheo care, purewick change. Pt had a large formed soft BM at this time. Urine is cola colored and with sediment. Pt c/o muscle spasms when moving, in her left hip. Cheo care performed, barrier cream applied, new purewick and depends placed on patient. Pt floated to her left side at this time. Pt refuses to allow me to move her to the chair to place a waffle mattress underneath her and declined ice packs. Side rails up x4, call light and bedside table in reach.
[2023-09-19] MEDS ORDERED: LACTATED RINGER'S 1,000 ML IV SCH (18:45)
--- NOTE | 2023-09-19 19:18 | NUR ---
REPORT RECEIVED FROM DAY SHIFT RN. PT LYING IN BED ALERT AND ORIENTED. WARM BLANKET PROVIDED. NO FURTHER NEEDS. CALL LIGHT IN REACH. WHITE BOARD UPDATED.
[2023-09-19] MEDS ORDERED: DESMOPRESSIN ACETATE NAS SCH (21:00)
--- NOTE | 2023-09-19 21:37 | NUR ---
EVENING ASSESSMENT COMPLETE. SCHEDULED MEDS ADMIN PER EMAR. PT REPORTS LLE PAIN 08/22. PRN FOR PAIN ADMIN PER EMAR. VS AND I&O OBTAINED. LLE CMS INTACT. EDEMA NOTED. ASSISTED PT TO REPOSITION IN BED. NO FURTHER NEEDS AT THIS TIME. CALL LIGHT IN REACH.
--- NOTE | 2023-09-19 23:52 | NUR ---
SISTER BROUGHT KNEE IMMOBILIZER FROM HOME. IMMOBILIZER PLACED TO LEFT KNEE. PT INCONTINENT OF URINE AROUND PUREWICK. CLEAN BRIEF AND PUREWICK PLACED AFTER EUNICE CARE. PT APPREHENSIVE OF PAIN WITH MOVEMENT BUT ABLE TO PARTICIPATE WITH CARES. 2PA TO REPOSITION IN BED. NO FURTHER NEEDS AT THIS TIME. CALL LIGHT IN REACH.
[2023-09-20] VITALS (8 sets, daily range): BP systolic 120–159; BP diastolic 67–84
--- NOTE | 2023-09-20 03:13 | NUR ---
PT RESTING IN BED WITH EYES CLOSED. RESPIRATIONS EVEN. CALL LIGHT IN REACH.
[2023-09-20 05:28] LABS: BASOPHILS 0.9 % (0-2); EOSINOPHILS 3.7 % (0-6); HEMATOCRIT 38.7 % (35.0-50.0); LYMPHOCYTES 23.9 % (24-44); MCH 30.7 (27-36); MCHC 33.5 g/dl (30-36); MCV 91.9 fl (81-99); MONOCYTES 9.6 % (0-12); NEUTROPHILS 61.9 % (39-80); PLATELET COUNT 184 K/uL (140-440); RBC 4.21 M/ul (4.3-5.7); RDW 14.6 (10.5-15.0)
--- NOTE | 2023-09-20 05:40 | NUR ---
VS AND I&O OBTAINED. NEW PUREWICK PLACED AFTER EUNICE CARE. PT REPORTS "SPASM" TYPE PAIN 12/22. PRN FOR PAIN ADMIN PER EMAR. ICE PACK TO LEFT KNEE. LEFT KNEE REMAINS IN IMMOBILIZER. CMS INTACT. ASSISTED PT TO REPOSITION. NO FURTHER NEEDS. CALL LIGHT IN REACH.
[2023-09-20 05:47] LABS: ALBUMIN 2.6 g/dL (3.4-5.0); ALBUMIN/GLOBULIN RATIO 0.79 (1.1-2.4); ANION GAP 11.9 (7-21); BILIRUBIN, TOTAL 0.5 ng/dL (0.2-1.0); BUN/CREATININE RATIO 16.48 (6.0-28.6); CALCIUM 8.2 mg/dL (8.5-10.1); CREATININE, SERUM 0.91 mg/dL (0.55-1.02); POTASSIUM 3.9 mmol/L (3.5-5.1); PROTEIN, TOTAL 5.9 g/dL (6.4-8.2)
--- NOTE | 2023-09-20 07:20 | NUR ---
RECEIVED REPORT FROM ANIRUDH NOLASCO. ASSUMING CARE OF PT. PT RESTING IN BED WITH EYES CLOSED, RESPIRATIONS EVEN AND UNLABORED. CALL LIGHT WITHIN REACH.
[2023-09-20] MEDS ORDERED: HYDROCODONE/ACETA 7.5/325 TAB PO PRN (07:45)
--- NOTE | 2023-09-20 08:22 | NUR ---
PT AWAKENS TO TOUCH, HOB ELEVATED FOR PT TO EAT BREAKFAST AND TAKE MEDICATIONS. PT TAKES PO MEDICATIONS W/O DIFFICULTY. PRN PAIN MEDICATION GIVEN PER MD ORDER PRIOR TO PHYSICAL THERAPY. PT DENIES SOB AT THIS TIME, O2 WEANED FROM 0.5L NC TO RA, O2 SAT >96% ON RA. PT STATES NO PAIN IN LLE WHEN STILL, STATES PAIN WITH ANY MOVEMENT UPON ASSESSMENT. PUREWICK IN PLACE. PT SKIN DRY, REDNESS IN EUNICE AREA, DEPENDS IN PLACE TO PREVENT MOISTURE IN AREA. PT STATES NO NEEDS AT THIS TIME, CALL LIGHT WITHIN REACH.
[2023-09-20] MEDS ORDERED: KETOROLAC TROMETHAMINE 10 MG TAB PO SCH ×2 (09:00→14:00)
--- NOTE | 2023-09-20 09:40 | NUR ---
Spoke with Thuy, she recognizes this RN as I was her spouses hospice nurse. She states she has already spoken with Dr. Urbano. She is aware she will need PT from a SNF prior to returning to her home. Pt [place]. Her sister is caring for her animals at this time. Pt would like to go to [facility], [facility], or [facility] in this order. I will fax the chart to Shantell at [facility].
--- NOTE | 2023-09-20 10:07 | NUR ---
VISITED DURING SPIRITUAL CARE ROUNDS. PT EXHIBITED OVERALL POSITIVE OUTLOOK; AWARENESS OF CARE PLAN. PROVIDED SUPPORTIVE PRESENCE, HOSPITALITY, PRAYER. PT EXPRESSED GRATITUDE.
--- NOTE | 2023-09-20 10:25 | NUR ---
PT UP TO CHAIR. JANET REMOVED, NEW IN PLACE. PT DENIES PAIN AT THIS TIME, DENIES ANY NEEDS AT THIS TIME, CALL LIGHT WITHIN REACH.
--- NOTE | 2023-09-20 11:49 | NUR ---
CASE MANAGEMENT AT THE BEDSIDE. PT STATES NO NEEDS AT THIS TIME, CALL LIGHT WITHIN REACH.
--- NOTE | 2023-09-20 12:05 | NUR ---
NEW CRYO CUFF APPLIED TO LLE. PT STATES NO NEEDS AT THIS TIME, DENIES ANY PAIN AT THIS TIME. PT UP TO CHAIR EATING LUNCH. CALL LIGHT WITHIN REACH.
--- NOTE | 2023-09-20 13:19 | NUR ---
PT UP TO CHAIR, FINISHES LUNCH TRAY W/O DIFFICULTY. PT STATES NO NEEDS AT THIS TIME, CALL LIGHT WITHIN REACH.
--- NOTE | 2023-09-20 16:26 | NUR ---
PT WANTED TO GO BACK TO BED AND SHE DID OKAY WAS STRUGGLING TO BACK UP TO THE BED. SOON SHE GOT BACK TO BED SHE I CHANGED HER PURE WICK @1600 AND DID EUNICE CARE AND ADDED MORE ICE TO THE MACHINE. I GOT HER MORE WATER AND 2 WARM BLANKETS. CALL LIGHT IS WITHIN REACH AND PT DIDNT NEED ANYTHING ELSE FROM ME.
--- NOTE | 2023-09-20 17:12 | NUR ---
PT SITTING UP IN BED EATING DINNER, STATES THE CRYO CUFF IS HELPFUL WITH HER LLE. PT STATES NO PAIN AT THIS TIME. PT REQUESTS MILK WITH DINNER, GIVEN. PT STATES NO FURTHER NEEDS AT THIS TIME, CALL LIGHT WITHIN REACH.
--- NOTE | 2023-09-20 19:10 | NUR ---
REPORT RECEIVED FROM CAREN OLEARY. pt RESTING IN THE BED. BOARD UPDATED. CALL LIGHT WITHIN REACH. pt DENIES ANY NEEDS AT THIS TIME.
--- NOTE | 2023-09-20 21:00 | NUR ---
ASSESSMENT AND VITAL SIGNS DONE. CRYO CUFF REFILLED WITH ICE. SCHEDULED MEDICATION ADMINISTERED. WATER REFRESHED. pt DENIES ANY OTHER NEEDS AT THIS TIME. WARM BLANKET PROVIDED. CALL LIGHT WITHIN REACH. BRACE IN PLACE.
--- NOTE | 2023-09-20 23:45 | NUR ---
pt IV ALRMING DISTAL OCCLUSION. pt ARM REPOSITIONED AND IV RESTARTED. pt DENIES ANY OTHER NEEDS AT THIS TIME. CALL LIGHT WITHIN REACH.
[2023-09-21] VITALS (7 sets, daily range): BP systolic 128–147; BP diastolic 68–72
--- NOTE | 2023-09-21 00:45 | NUR ---
IN RM TO CHANGE PUREWICK. pt BRIEF WET AND BM IN BRIEF. BRIEF CHANGED. SCHEDULED MEDICATION ADMINISTERED, SEE JUL. PRN MEDICATION ADMINISTERED, SEE JUL. pt C/O 11/21 PAIN. CRYO CUFF STILL HAS ICE IN IT. pt DENIES ANY OTHER NEEDS AT THIS TIME. CALL LIGHT WITHIN REACH.
--- NOTE | 2023-09-21 03:12 | NUR ---
pt RESTING IN THE BED WITH EYES CLOSED. RR EVEN AND UNLABORED. CALL LIGHT WITHIN REACH.
[2023-09-21 05:23] LABS: BASOPHILS 0.9 % (0-2); EOSINOPHILS 3.4 % (0-6); HEMATOCRIT 38.5 % (35.0-50.0); HEMOGLOBIN 12.8 g/dL (12.0-18.0); LYMPHOCYTES 16.7 % (24-44); MCH 30.5 (27-36); MCHC 33.3 g/dl (30-36); MCV 91.4 fl (81-99); MONOCYTES 8.3 % (0-12); NEUTROPHILS 70.7 % (39-80); PLATELET COUNT 206 K/uL (140-440); RBC 4.22 M/ul (4.3-5.7); RDW 14.4 (10.5-15.0)
--- NOTE | 2023-09-21 05:35 | NUR ---
ASSESSMENT AND VITAL SIGNS DONE. pt RESTING IN THE BED. PURE WICK IN PLACE. pt DENIES ANY NEEDS AT THIS TIME. CALL LIGHT WITHIN REACH. ICE IN CRYO CUFF
--- NOTE | 2023-09-21 07:00 | NUR ---
RECEIVED REPORT FROM ANIRUDH SOLORIO WITH ANIRUDH BARRETO. PT IN BED WITH EYES CLOSED, RR EVEN AND UNLABORED. CRYOCUFF RUNNING, FLUIDS NOTED RUNNING AT 100ML/HR. CALL LIGHT IN REACH, NO NEEDS NOTED.
--- NOTE | 2023-09-21 07:00 | NUR ---
REPORT RECEIVED FROM ANIRUDH SOLORIO. PT RESTING IN BED SEMI-FOWLERS. EYES CLOSED, RR EVEN AND UNLBAORED. CALL LIGHT IN REACH. BED ALARM ON. NO NEEDS IDENTIFIED AT THIS TIME.
--- NOTE | 2023-09-21 09:50 | NUR ---
Spoke with Thuy. She is resting in bed. Agreeable to placement. Spoke with Shantell from [facility] earlier and chart has not been reviewed. Chart was also sent to Kamila at [facility].
--- NOTE | 2023-09-21 10:20 | NUR ---
IN WITH SN SCOT TO ATTEMPT MINI STRAIGHT CATH PER POLICY. PT NOTED TO BE INCONTINENT OF STOOL. EUNICE CARE PROVIDED. REDNESS NOTED TO BUTTOCKS, BLANCHABLE. BARRIER CREAM APPLIED. NEW ATTENDS PLACED. PT NOTED TO BE INCONTINENT OF URINE WHILE ATTEMPTING TO CLEAN AREA. MINI CATH NOTED TO ONLY OBTAIN 3ML. PER LAB 15-20ML IS NEEDED. WILL ATTEMPT STRAIGHT CATH AGAIN LATER. ASSESSMENT COMPLETE. LUNG SOUNDS CLEAR. BOWEL TONES ACTIVE. ABD NON-TENDER WITH PALPATION. EDEMA NOTED TO BLE, NON-PITTING. PEDAL PULSES PALPABLE AND EQUAL. SCATTERED BRUISING NOTED TO BILATERAL ARMS. BRACE IN PLACE TO PTs LEFT KNEE. EDEMA NOTED TO LEFT KNEE. DISCOLORATION NOTED TO RIGHT GREAT TOE. PT DENIES NUMBNESS OR TINGLING AT THIS TIME. PT REPORTING PAIN 4-5/10 IN LEFT KNEE. CRYO CUFF PLACED WITH TOWEL BETWEEN SKIN AND KNEE.
--- NOTE | 2023-09-21 10:45 | NUR ---
ATTEMPTED TO VISIT DURING SPIRITUAL CARE ROUNDS. PHYSICAL THERAPY WORKING WITH PT. DID NOT INTERRUPT. PROVIDED PRAYER. WILL FOLLOW UP CIRCUMSTANCES ALLOW.
--- NOTE | 2023-09-21 12:42 | NUR ---
PT UP RESTING IN RECLINER. EYES CLOSED, RR EVEN AND UNLABORED. NO NEEDS IDENTIFIED AT THIS TIME. CALL LIGHT IN REACH. CHAIR ALARM ON.
--- NOTE | 2023-09-21 13:40 | NUR ---
IN TO ROUND ON PT. PT SITTING UP IN RECLINER AND RESPONDS WHEN ADDRESSED. BASILIO NAQVI IN ROOM OBTAINING VITALS. 1PA WITH FWW FROM RECLINER TO BED TO ATTEMPT STRAIGHT CATH PER POLICY FOR LAB. SAMPLE OBTAINED. EUNICE-CARE PROVIDED. BARRIER CREAM APPLIED TO EUNICE-AREA. NEW ATTEND PLACED, LEFT UNVELCROWED TO PREVENT MOISTURE BUILD UP. NEW PUREWICK PLACED. ANIRUDH NEGRO IN FOR 2 RN SKIN ASSESSMENT. EUNICE-AREA AND BUTTOCKS REDNESS NOTED. SCATTERED BRUISING TO BILATERAL ARMS. DISCOLORATION TO RIGHT GREAT TOE. ASSESSMENT COMPLETE. NO COMPLAINT OF NUMBNESS OR TINGLING. PEDAL PULSES PALPABLE AND EQUAL. EDEMA NOTED TO BLE. LLE MORE NO THAN RIGHT. PT REPORTING PAIN 3/10 TO LEFT KNEE. PT DENIES PRN PAIN MEDICATION AT THIS TIME. CRYOCUFF PLACED TO LEFT KNEE WITH CLOTH BETWEEN SKIN AND CRYO CUFF. PT DENIES ANY OTHER NEEDS AT THIS TIME. CALL LIGHT IN REACH. BED ALARM ON. PTs SISTER IN ROOM VISITING.
--- NOTE | 2023-09-21 13:50 | NUR ---
Notified by Shantell at [facility] they will accept this pt tomorrow at 11:00. Updated pt and she called family for transport. They would prefer pt go by yo. Yo scheduled for 09:45 and pt is aware she will pay $[address] Ulloa aware and working on orders.
[2023-09-21 14:02] LABS: BILIRUBIN, URINE NEGATIVE (negative); BLOOD/HGB, URINE LARGE (Negative); KETONE, URINE NEGATIVE (Negative); LEUK ESTERASE, URINE MODERATE (negative); NITRITE, URINE NEGATIVE (negative)
[2023-09-21 14:10] LABS: BACTERIA, URINE RARE /hpf (negative); CASTS, URINE NONE SEEN \\lpf; CRYSTALS, URINE NONE SEEN (0-1+); EPITHELIAL CELLS, URINE SQUAMOUS 1+ /lpf (0-1+); RED BLOOD CELLS, URINE >50 /hpf (0-5)
[2023-09-21] MEDS ORDERED: LOVASTATIN20 MG PO (14:10)
[2023-09-21 14:11] LABS: COLLECTION TYPE, URINE CATH; REFLEX CULTURE, URINE Yes (No)
[2023-09-21] MEDS ORDERED: 8 HOUR PAIN RE650 MG PO (14:11)
[2023-09-21] MEDS ORDERED: HYDROCODON-ACE1 EA10 PO (14:11)
[2023-09-21] MEDS ORDERED: DESMOPRESSIN ACE5 ML NAS (14:12)
[2023-09-21] MEDS ORDERED: LEVOTHYROXINE112 MCG PO (14:12)
[2023-09-21] MEDS ORDERED: GABAPENTIN400 MG PO (14:12)
--- NOTE | 2023-09-21 15:53 | NUR ---
IN TO ROUND ON PT. PT RESTING IN BED WITH EYES CLOSED, RR EVEN AND UNLABORED. HEAD TILTED TO LEFT. CALL LIGHT IN LAP. NO NEEDS IDENTIFIED.
--- NOTE | 2023-09-21 16:39 | NUR ---
CHECKED ON PATIENT AROUND 1600 PATIENT WAS SLEEPING.
--- NOTE | 2023-09-21 17:10 | NUR ---
Covid test order for 0600 tomorrow as must be completed the day pt arrives at [facility] per [facility].
--- NOTE | 2023-09-21 17:42 | NUR ---
PATIENT SAID SHE IS NOT HUNGRY RIGHT NOW SHE SAID SHE WANTS TO SLEEP.
--- NOTE | 2023-09-21 18:32 | NUR ---
REFUSED DINNER AT THIS TIME. WILL POSSIBLY EAT DINNER LATER.
--- NOTE | 2023-09-21 18:48 | NUR ---
PSYCHOLOGY PROFESSOR CHANGED OUT PT DEPENDS AND PUREWICK. PSYCHOLOGY PROFESSOR EMPTIED PT PUREWICK CONTAINER. PSYCHOLOGY PROFESSOR PERFORMED EUNICE CARE AND PLACED BARRIER CREAM ON PT. PT TOLERATED ACTIVITY WELL. PT WAS GIVEN A WARM BLANKET AND STATES NO FURTHER COMPLAINTS
--- NOTE | 2023-09-21 19:47 | NUR ---
REPORT RECEIVED FROM DAY RN. PATIENT RESTING IN BED. CRYOCUFF IN PLACE TO LEFT KNEE, LEFT KNEE IMOBLIZER IN PLACE. IVF RUNNING WITH NO ISSUES OR CONCERNS. PATIENT DENIES ANY PAIN OR DISCOMFORT AT THIS TIME. CALL LIGHT WITHIN REACH.
--- NOTE | 2023-09-21 20:19 | NUR ---
PATIENT REASTING IN BED, NO C/O PAIN AT THIS TIME. VSS, IVF INFUSING WITH NO ISSUES IV SITE PATENT. KNEE IMOBLIZER IN PLACE TO LEFT KNEE, CYRO CUFF REFILLED WITH ICE. CRYOCUFF IN PLACE. POSITIVE CMS TO LLE. MILD EDEMA NOTED TO LLE. NON PITTING. LUNGS CTA. BOWEL TONES ACITVE X 4 QUADRANTS. NO FURTHER NEEDS AT THIS TIME.
--- NOTE | 2023-09-21 22:10 | NUR ---
PATIENT RESTING IN BED WITH EYES CLOSED. RESPIRATIONS EVEN AND UNLABORED. IVF INFUSING WITH NO ISSUE OR CONCERNS. CRYOCUFF IN PLACE, KNEE IMOBLIZER IN PLACE TO LEFT KNEE. CALL LIGHT WITHIN REACH.
--- NOTE | 2023-09-22 00:34 | NUR ---
PATIENT RESTING IN BED. RESPRIATIONS EVEN AND UNLABORED. CRYOCUFF IN PLACE. CALL LIGHT WITHIN REACH.
--- NOTE | 2023-09-22 01:59 | NUR ---
PATIENT RESTING IN BED. C/O SEVERE PAIN SCHEDULED MEDICATIONS GIVEN. PATIENT REQUESTING ADITIONAL PRN MEDICATION. SEE MAR. NEW BAG OF IVF HUNG. PUREWICK CHANGED. GROIN REMAINS RED AND EXCORATED. NEW BRIEF PLACED, BARRIER CREAM APPLIED. CRYO CUFF IN PLACE. LEFT KNEE IMOBLIZER IN PLACE. NO FURTHER NEEDS AT THIS TIME CALL LIGHT WITHIN REACH.
--- NOTE | 2023-09-22 03:49 | NUR ---
PATIENT RESING IN BED WITH EYES CLOSED. RESPIRATIONS EVEN AND UNLABORED. CALL LIGHT WITHIN REACH.
[2023-09-22 05:49] VITALS: BP 146/71
[2023-09-22 05:52] LABS: HEMATOCRIT 37.3 % (35.0-50.0); HEMOGLOBIN 12.4 g/dL (12.0-18.0); MCH 30.3 (27-36); MCHC 33.3 g/dl (30-36); PLATELET COUNT 220 K/uL (140-440); RBC 4.09 M/ul (4.3-5.7); RDW 14.3 (10.5-15.0)
[2023-09-22 06:03] VITALS: BP 146/71
[2023-09-22 06:03] LABS: ANION GAP 8.9 (7-21); BUN/CREATININE RATIO 21.73 (6.0-28.6); CALCIUM 7.6 mg/dL (8.5-10.1); CREATININE, SERUM 0.69 mg/dL (0.55-1.02); POTASSIUM 3.9 mmol/L (3.5-5.1)
--- NOTE | 2023-09-22 06:03 | NUR ---
LIVESTOCK TRADER ENTERED ROOM AND OBTAINED VITALS AND RECORDED I AND O. LIVESTOCK TRADER AND RN CHANGED PT ATTENDS AND PURE MANISHA CHANGED. CALL LIGHT WITHIN REACH AND PT STATES NO FURTHER NEEDS AT THIS TIME. RN REMAINS IN ROOM.
--- NOTE | 2023-09-22 06:05 | NUR ---
PATIENT RESTING IN BED. VSS. PUREWICK CHANGED, BREIF CHANGED, BARRIER CREAM APPLIED TO PERIAREA AND GROIN., CONTINUED REDNESS APPEARS TO BE IMPROVING. IVF INFUSING WITH NO ISSUES. POSITIVE CMS TO LLE. MILD EDEMA NOTED TO LLE, IMOBLIZER IN PLACE AND CRYOCUFF IN USE TO LLE. NO FURTHER NEEDS AT THIS TIME. CALL LIGHT WITHIN REACH.
[2023-09-22 06:07] LABS: BANDS, MANUAL DIFF 4; BASOPHILS, MANUAL DIFF 1; EOSINOPHILS, MANUAL DIFF 8; LYMPHOCYTES, MANUAL DIFF 24; MONOCYTES, MANUAL DIFF 4; NEUTROPHILS, MANUAL DIFF 59
--- NOTE | 2023-09-22 06:55 | NUR ---
REPORT RECEIVED FROM ANIRUDH TOMAS WITH ANIRUDH BARRETO. PT RESTING IN BED WITH EYES CLOSED, RR EVEN AND UNLABORED. CRYOCUFF NOTED TO L KNEE WITH TOWEL BETWEEN SKIN AND CUFF. CALL LIGHT IN REACH, NO NEEDS NOTED AT THIS TIME.
--- NOTE | 2023-09-22 07:00 | NUR ---
REPORT RECIEVED FROM ANIRUDH TOMAS. PT RESTING IN BED WITH EYES CLOSED, RR EVEN AND UNLABORED. IV INFUSING WNL. CRYO CUFF IN PLACE WITH TOWEL BETWEEN SKIN AND CRYO CUFF ON LEFT KNEE. BRACE ON LEFT KNEE. NO NEEDS IDENTIFIED AT THIS TIME. CALL LIGHT IN REACH.
--- NOTE | 2023-09-22 07:30 | NUR ---
Faxed covid test to [facility]. Texted to check if orders or ok. All ok. Packet given to Charge nurse.
--- NOTE | 2023-09-22 07:54 | NUR ---
THIS RN AND SN SCOT CALLED DR. GAMBLE REGARDING PTs SOD[facility] LABS. PER DR. GAMBLE "I WILL PUT THE ORDER IN."
--- NOTE | 2023-09-22 08:19 | NUR ---
IN WITH ANIRUDH BARRETO TO ADMINISTER MEDS PER MAR AND ASSESS PT. LUNG SOUNDS CLEAR IN ALL LOBES, HEART TONES HEARD WNL, ABDOMEN SOFT, NON TENDER AND ACTIVE IN ALL QUADRANTS. PULSES STRONG IN UPPER EXTREMETIES, FAINT IN BLE. LLE NOTED TO HAVE TRACE, NON PITTING EDEMA PARTICULARLY IN KNEE. LLE WITH LEG BRACE AND CRYOCUFF ON TOP OF TOWEL IN PLACE. PT REPORTS PAIN IS 4/10, DENIES INTERVENTION AT THIS TIME. PT DENIES NUMBNESS OR TINGLING. CALL LIGHT IN REACH, NO OTHER NEEDS NOTED AT THIS TIME.
--- NOTE | 2023-09-22 08:24 | NUR ---
IN WITH SN SCOT TO ADMINISTER MEDICATIONS, SEE MAR. PT LAYING IN BED AND RESPONDS WHEN ADDRESSED. PT SITS UP IN BED AND TAKES PO MEDICAITONS WITH NO ISSUES. IV FLUSHES WNL. IV INFUSING WNL. PT REPORTING PAIN 5/10 TO LEFT LEG. SCHEDULED MEDICATIONS ADMINISTERED, SEE MAR. ASSESSMENT COMPLETE. LUNG SOUNDS CLEAR. BOWEL TONES ACTIVE. ABD SOFT AND NON-TENDER WITH PALPATION. BRACE TO LLE IN PLACE ALONG WITH CRYO CUFF (TOWEL BETWEEN SKIN AND CUFF.). PEDAL PULSES PALPABLE AND EQUAL BILATERALLY. EDEMA NOTED TO LEFT KNEE. TRACE EDEMA NOTED TO LEFT ANKLE. PT DENIES NUMBNESS OR TINGLING AT THIS TIME. SCATTERED BRUISING NOTED TO BILATERAL ARMS. WATER PROVIDED. PT DENIES ANY OTHER NEEDS AT THIS TIME. CALL LIGHT IN REACH. PT UP AND EATING BREAKFAST AT THIS TIME.
--- NOTE | 2023-09-22 08:40 | NUR ---
Notified in AM report pts NA is low and pt was given sodium chloride tab and will redraw at 9am. [place] [facility] [place] will update the nurse, but does not feel this will hinder dc.
[2023-09-22] MEDS ORDERED: SODIUM CHLORIDE 1 GM TAB PO SCH (09:00)
--- NOTE | 2023-09-22 09:06 | NUR ---
THIS RN TALKED TO DR. GAMBLE. PER DR. GAMBLE IT IS "OKAY TO SL PT AT THIS TIME. ENCOURAGE PO INTAKE." AWAITING 0900 LABS PRIOR TO POTENTIAL DC. IN ROOM WITH SN SCOT. IV PUMP ALARMING, IV ABX COMPLETE. PT SL AT THIS TIME. PER DR. GAMBLE. PT REPORTING BEING FINISHED WITH BREAKFAST. TRAY REMOVED. PT ENCOURAGED TO HAVE PO INTAKE. PT VERBALIZES UNDERSTANDING. PT DENIES ANY OTHER NEEDS AT THIS TIME. CALL LIGHT IN REACH.
--- NOTE | 2023-09-22 09:08 | NUR ---
IN PT IV ALARMING, IV ABX COMPLETE, PT SL PER MD ORDERS. PT REPORTS MILD NAUSEA, DOES NOT WANT TO EAT ANYMORE OF HER BREAKFAST. TRAY REMOVED, PT ENCOURAGED TO SIP ON WATER. CALL LIGHT IN REACH, NO OTHER NEEDS NOTED AT THIS TIME.
--- NOTE | 2023-09-22 09:15 | NUR ---
Na increased, but not a correct level. ordered sodium chloride daily x 2 weeks or when lab corrects. Sodium level to be redrawn in 2 days. Orders faxed to [facility]. Pt will leave per van at 9:45 as scheduled.
[2023-09-22 09:19] LABS: ANION GAP 12.1 (7-21); BUN/CREATININE RATIO 17.1 (6.0-28.6); CALCIUM 7.8 mg/dL (8.5-10.1); CREATININE, SERUM 0.76 mg/dL (0.55-1.02); POTASSIUM 4.1 mmol/L (3.5-5.1)
[2023-09-22 09:35] VITALS: BP 111/86
--- NOTE | 2023-09-22 09:35 | NUR ---
IN WITH SN SCOT TO GET PT DRESSES AND REMOVE IV. IV REMOVED WNL, SEE VASCULAR ACCESS. ANIRUDH LEON IN FOR 2RN SKIN ASSESSMENT. SKIN ASSESSMENT COMPLETE. REDNESS TO RIGHT GREAT TOE, SCATTERED BRUISING TO BILATERAL ARMS, SCABS NOTED TO RIGHT VALLE, EUNICE-AREA AND GROIN REDNESS NOTED. PT NOTED TO BE INCONTINENT OF URINE, EUNICE-CARE PROVIDED. NEW ATTENDS PLACED. PT DRESSED IN OWN CLOTHES. BELONGINGS RETURNED. WALLET AND MEDICATION FROM LOCK BOX HANDED TO PT. PT REPORTING PAIN 4/10 TO LLE. PRN NORCO ADMINISTERED, SEE MAR. PT TAKES PO MEDICAITON WITH NO ISSUES. PT USES FWW TO GET FROM BED TO WHEELCHAIR. PT WHEELED OUT BY THIS RN AND SN SCOT. PT HAS NO COMPLAINTS/CONCERNS UPON DC.
--- NOTE | 2023-09-22 10:10 | NUR ---
CALLED WITH ANIRUDH BARRETO TO GIVE REPORT TO [facility]. REPORT COMPLETED, QUESTIONS ANSWERED.
== END 2023-09-22 09:50 | DRG 872 ==
LOC: ED 19:40 → MS 19:41
PROVIDERS: Family Medicine; Internal Medicine; ADMIT Internal Medicine; ATTEND Internal Medicine
DX: A41.9 Sepsis, unspecified organism (principal); N39.0 Urinary tract infection, site not specified; W18.30XA Fall on same level, unspecified, initial encounter; Z96.652 Presence of left artificial knee joint; E66.9 Obesity, unspecified; E03.9 Hypothyroidism, unspecified; S76.112A Strain of left quadriceps muscle, fascia and tendon, initial encounter; E78.00 Pure hypercholesterolemia, unspecified; N32.81 Overactive bladder; F03.90 Unspecified dementia, unspecified severity, without behavioral disturbance, psychotic disturbance, mood disturbance, and anxiety; Z98.890 Other specified postprocedural states; Z79.82 Long term (current) use of aspirin; Z79.890 Hormone replacement therapy; Z79.891 Long term (current) use of opiate analgesic; Z79.899 Other long term (current) drug therapy; Z88.0 Allergy status to penicillin; Z88.2 Allergy status to sulfonamides; Z88.8 Allergy status to other drugs, medicaments and biological substances; Z68.25 Body mass index [BMI] 25.0-25.9, adult
CPT/HCPCS: 36415; 51701; 51702; 71045; 73502; 73700; 76882; 80048; 80053; 81001; 82553; 83605; 85025; 85610; 87040; 87088; 87502; 93005; 93010; 96365; 96376; 97112; 97116; 97162; 97166; 97535; 99285-25; A9270; G0378; J0696; J7030; J7121; U0002

== ENCOUNTER 2024-11-27 17:58 | Emergency (ER) | payer MEDICARE ==
[~2024-11-27] VITALS: Ht 162.6 cm; Wt 63.2 kg
[~2024-11-27 17:58] MED LIST changes: +8 HOUR PAIN RE650 MG PO; +CELECOXIB200 MG PO; +GABAPENTIN400 MG PO
[2024-11-27 18:25] LABS: BASOPHILS 0.7 % (0.1-1.2); EOSINOPHILS 0.1 % (0.7-5.8); LYMPHOCYTES 10.3 % (19.3-51.7); MCH 31.1 PG (25.6-32.2); MCHC 32.6 g/dL (32.2-35.5); MCV 95.5 fL (79.4-94.8); MONOCYTES 9.5 % (4.7-12.5); NEUTROPHILS 78.0 % (34.0-71.1); RBC 4.88 M/uL (3.93-5.22)
[2024-11-27] MEDS ORDERED: LIDOCAINE 2% VISCOUS 6 ML SYR MM ONE (18:30)
[2024-11-27 18:35] LABS: ALT (SGPT) 25.0 U/L (14-59); AST (SGOT) 28.0 U/L (15-37); GLOMERULAR FILTRATION RATE,EST 38.0 mL/min (>60); PROTEIN, TOTAL 8.1 g/dL (6.4-8.2); UREA NITROGEN 21.0 mg/dL (7-18)
[2024-11-27 18:42] LABS: BLOOD/HGB, URINE LARGE (Negative); KETONE, URINE NEGATIVE (Negative); LEUK ESTERASE, URINE LARGE (negative); NITRITE, URINE POSITIVE (negative)
[2024-11-27] MEDS ORDERED: SODIUM CHLORIDE 0.9% 500 ML IV PRN (18:45)
[2024-11-27 18:52] LABS: BACTERIA, URINE 1+ /hpf (negative); CASTS, URINE NONE SEEN \\lpf; CRYSTALS, URINE NONE SEEN (0-1+); EPITHELIAL CELLS, URINE SQUAMOUS 1+ /lpf (0-1+); REFLEX CULTURE, URINE Yes (No)
[2024-11-27 18:58] LABS: INR 1.15 (0.80-1.30); PROTIME 13.9 Sec (11.2-14.2)
[2024-11-27 20:25] LABS: LACTIC ACID, BLOOD 1.5 mmol/L (0.4-2.0)
[2024-11-27] MEDS ORDERED: CEFDINIR300 MG PO (21:26)
[2024-11-27] MEDS ORDERED: NORTRIPTYLINE H25 MG PO (21:27)
[2024-11-27] MEDS ORDERED: TRAMADOL HCL50 MG PO (21:27)
[2024-11-27] MEDS ORDERED: ONDANSETRON ODT8 MG PO (21:27)
[2024-11-27] MEDS ORDERED: TRAMADOL HCL 50 MG HOME.PACK PO ONE (21:30)
[2024-11-27] MEDS ORDERED: ONDANSETRON 4 MG HOME.PACK SL ONE (21:30)
[2024-11-27] MEDS ORDERED: CEFDINIR 300 MG HOME.PACK PO ONE (21:30)
[2024-11-27] MEDS ORDERED: AMITRIPTYLINE HCL 25 MG TAB PO ONE (21:45)
[2024-11-27 22:27] VITALS: BP 95/65
== END 2024-11-27 22:20 | disposition home or self-care (01) ==
LOC: ED 17:58
PROVIDERS: Emergency Medicine
DX: N30.10 Interstitial cystitis (chronic) without hematuria (principal); E78.00 Pure hypercholesterolemia, unspecified; Z79.82 Long term (current) use of aspirin; Z88.2 Allergy status to sulfonamides; Z88.0 Allergy status to penicillin; Z88.5 Allergy status to narcotic agent; Z87.891 Personal history of nicotine dependence
CPT/HCPCS: 36415; 51701; 71045; 74177; 80053; 81001; 83605; 85025; 85610; 85730; 87040; 87088; 99284-25; A9270; J0696; Q9967